=== PATIENT | female | born 1935 | race Caucasian/White ===

== ENCOUNTER 2022-07-09 23:11 | Inpatient (IN) | payer MEDICARE, OTHER ==
[~2022-07-09] VITALS: Ht 170.2 cm; Wt 68.0 kg
--- NOTE | 2022-07-09 23:36 | NUR ---
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 ALERT ORIENTED X4, COLOMBIAN SPEAKING, SON AT BEDSIDE. NO S/S OF ANY RESPIRATORY DISTRESS, LEFT BREAST MASECTOMY, ABD OBESE, SOFT AND NON TENDER TO TOUCH. #20G ESTABLISHED IN RIGHT AC, BLOOD COLLECTED AND SENT TO LAB. MD AT BEDSIDE FOR EXAM. ASSISTED INTO GOWN, PLACED ON MONITOR, WILL CONTINUE TO MONITOR.
[2022-07-09] MEDS ORDERED: MORPHINE SULFATE 2 MG/1 ML DISP.SYRIN IM ONE (23:45)
[2022-07-09] MEDS ORDERED: MORPHINE SULFATE 2 MG/1 ML DISP.SYRIN ONE (23:45)
[2022-07-09 23:48] LABS: HEMATOCRIT 39.9 % (31.2-41.9); MEAN CORPUSCULAR HEMOGLOBIN 30.3 uug (24.7-32.8); MEAN CORPUSCULAR VOLUME 94.1 fL (75.5-95.3); PLATELET COUNT (AUTO) 204 K/uL (179-408)
[2022-07-10 00:31] LABS: ALANINE AMINOTRANSFERASE 44 U/L (14-59); ALKALINE PHOSPHATASE 281 U/L (50-136); ASPARTATE AMINOTRANSFERASE 74 U/L (15-37); BILIRUBIN,DIRECT 0.3 mg/dL (0.0-0.2); BILIRUBIN,TOTAL 0.7 mg/dL (0.2-1.0); CARBON DIOXIDE 29 mmol/L (21-32); CHLORIDE 102 mmol/L (98-107); CREATININE 1.7 mg/dL (0.6-1.3); GLUCOSE 114 mg/dL (74-106); POTASSIUM 3.8 mmol/L (3.5-5.1); TOTAL PROTEIN, SERUM 7.4 g/dL (6.4-8.2); UREA NITROGEN, BLOOD 27 mg/dL (7-18)
--- NOTE | 2022-07-10 00:55 | NUR ---
Family remains at bedside, patient states pain is slightly better, remains in pain, MD made aware, no new orders.
[2022-07-10] MEDS ORDERED: metoprolol PO (01:10)
[2022-07-10] MEDS ORDERED: DILT180C66 PO (01:10)
[2022-07-10] MEDS ORDERED: AMIO200T5 PO (01:10)
--- NOTE | 2022-07-10 01:10 | NUR ---
Patient and patient's son unable to recall home medication at this time. Patient's son (Brian) will bring list of medication later on this AM.
--- NOTE | 2022-07-10 01:13 | NUR ---
Patient continues to rest no distress noted, son remains at bedside.
--- NOTE | 2022-07-10 01:15 | NUR ---
Paged Epic panel international nurse to admit patient, waiting for Julián Hackett CUSTODIAL SERVICES MANAGER to call back.
--- NOTE | 2022-07-10 01:34 | NUR ---
Dr Burgos spoke with Julián Hackett MANAGER [employer] promotion writer for [facility] who accept patient.
--- NOTE | 2022-07-10 01:35 | NUR ---
Patient aware will be admitted to the hospital, awaiting room assignment.
--- NOTE | 2022-07-10 01:47 | NUR ---
Patient noted to have BLE dry patches, pale in color and remains without any distress. Placed on o2 1liter per MD at this time.
[2022-07-10] MEDS ORDERED: REMEDY ESSENTIAL ZINC PASTE 113 GM TP PRN (03:00)
[2022-07-10] MEDS ORDERED: HYDROCODONE/APAP 5-325MG TABLET PO PRN (03:00)
[2022-07-10] MEDS ORDERED: ACETAMINOPHEN 325 MG TABLET PO PRN (03:00)
[2022-07-10] MEDS ORDERED: IV NS 1000 ML 1,000 ML IV PRN (03:00)
[2022-07-10] MEDS ORDERED: MORPHINE SULFATE 4 MG/1 ML DISP.SYRIN IV PRN (03:00)
[2022-07-10] MEDS ORDERED: ONDANSETRON 4 MG/2 ML VIAL IV PRN (03:00)
[2022-07-10] MEDS ORDERED: MAGNESIUM HYDROXIDE 30 ML LIQUID UDC PO PRN (03:00)
--- NOTE | 2022-07-10 03:52 | NUR ---
Note tammy in EDM - 07/10/22 at 0355 by JESSICA Patient sleepin, easy to arouse, family remains at bedside. Family made aaware of room #311 that patient will be going to. no change noted in prior assessment. Attempted to call reposr earlier, nurse will call me back.
--- NOTE | 2022-07-10 03:55 | NUR ---
Patient sleeping, easy to arouse, family remains at bedside. Family made aware of room #311 that patient will be going to. no change noted in prior assessment. Attempted to call report earlier, nurse will call me back.
--- NOTE | 2022-07-10 04:49 | NUR ---
Report given to accepting nurse Benita, patient remains stable for transport to unit.
--- NOTE | 2022-07-10 06:40 | NUR ---
Received a 87 yr old female admitted for a right hip fracture. AAOx4 Speaks Tristanian, very minimal Slovak, son at bedside. Was able to assessed patient with son as household refrigerator mechanic. Patient had a ground level fall at home and broke hip. Hx of lung Ca, Breast Ca with mastectomy 1992, HTN. VSS. All needs attended. #20 Rt heplock intact, NSS @ 75 cc/hr infused. Denies any pain at this time. Skin intact. Right hip has a slight bruise noted. Purewick to suction. No acute distress noted. Will monitor patient.
[2022-07-10 07:03] VITALS: BP 148/65
[2022-07-10 07:43] LABS: HEMATOCRIT 37.7 % (31.2-41.9); MEAN CORPUSCULAR HEMOGLOBIN 30.9 uug (24.7-32.8); MEAN CORPUSCULAR VOLUME 93.7 fL (75.5-95.3); PLATELET COUNT (AUTO) 183 K/uL (179-408)
[2022-07-10 07:57] LABS: CARBON DIOXIDE 29 mmol/L (21-32); CHLORIDE 103 mmol/L (98-107); CREATININE 1.4 mg/dL (0.6-1.3); GLUCOSE 106 mg/dL (74-106); MAGNESIUM 1.5 mg/dL (1.8-2.4); PHOSPHOROUS 2.4 mg/dL (2.5-4.9); POTASSIUM 3.7 mmol/L (3.5-5.1); UREA NITROGEN, BLOOD 24 mg/dL (7-18)
[2022-07-10] MEDS: PANTOPRAZOLE SODIUM 40 MG VIAL IV SCH (08:43)
[2022-07-10] MEDS: AMIODARONE HCL 200 MG TABLET PO SCH (08:44)
[2022-07-10 08:51] LABS: THYROID STIMULATING HORMONE 8.043 mIU/mL (0.358-3.740)
[2022-07-10] MEDS: MAGNESIUM SULFATE/D5W 100 ML IV SCH ×2 (10:04→11:30)
[2022-07-10 11:28] VITALS: BP 119/77
--- NOTE | 2022-07-10 14:55 | NUR ---
Pt. noted to be stable during the shift and no acute distress noted. Compliance with the care given. Call light within reach. 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 Will get the update consent for procedure for tomorrow. Pt. will be on NPO from midnight and will endorse the [facility] shift lead. Noted pt. retaining urine and reported to Dr. Jean and received order to do in and out catheter. Order followed and 400ml of urine was removed. Will keep monitoring the pt.
--- NOTE | 2022-07-10 15:40 | NUR ---
Received an order for urine collection. Order was Followed and urine collected and sent to lab.
[2022-07-10] MEDS ORDERED: SODIUM PHOSPHATE MM 15 MMOL in IV NORMAL SALINE 250 ML IV ONE (16:00)
[2022-07-10 16:08] VITALS: BP 107/53
[2022-07-10 16:09] LABS: *BILIRUBIN,URIN NEGATIVE (NEGATIVE); *BLOOD, URINE NEGATIVE (NEGATIVE); *CLARITY,URINE CLEAR (CLEAR); *COLOR,URINE YELLOW (YELLOW); *KETONES,URINE NEGATIVE (NEGATIVE); LEUKOCYTE ESTERASE ,URINE TRACE (NEGATIVE); NITRITE, URINE NEGATIVE (NEGATIVE); UGLUCOSE NEGATIVE (NEGATIVE)
[2022-07-10 16:21] LABS: *CREATININE,URINE 108.7 mg/dL (30-125); *URINE TOTAL PROTEIN RANDOM 32.6 mg/dL (<150/24HR)
[2022-07-10 16:56] LABS: BACTERIA,URINE FEW /HPF (NONE SEEN); RBC,URINE NONE SEEN /HPF (0-3); WBC,URINE 0-3 /HPF (0-3)
[2022-07-10 16:57] LABS: SQUAMOUS EPITHELIAL CELL,UR FEW /HPF (NONE SEEN)
[2022-07-10] MEDS: NEUTRA PHOS PACKET PO SCH (17:58)
[2022-07-10 20:44] VITALS: BP 113/57
--- NOTE | 2022-07-11 00:14 | NUR ---
Awake upon initial rounds. AAOx4 On continous 2L via nasal cannula. pulse ox 95%. NPO after MN. For bilateral hemiarthroplasty by Dr Chang. Consent signed. Patient been retaining urine. Bladder scan done, 300 cc noted in the bladder. Ordered for chinchilla catheter. #16 Fr chinchilla inserted under sterile technique with yellow urine noted. IVF's infusing well. Medicated with Morphine 4mg as needed. Patient been yelling and screaming and wanted to remove chinchilla out, told her she needed it because she is going to surgery in am. Patient still trying to pull catheter out and gets very agitated. Son called and was aware, even though son told she needed, still patient refused to listen. Chinchilla catheter d/c'ed.
[2022-07-11] MEDS: NEUTRA PHOS PACKET PO SCH (01:30)
[2022-07-11 04:12] VITALS: BP 104/40
[2022-07-11 07:06] LABS: HEMATOCRIT 36.3 % (31.2-41.9); MEAN CORPUSCULAR HEMOGLOBIN 31.1 uug (24.7-32.8); MEAN CORPUSCULAR VOLUME 94.1 fL (75.5-95.3); PLATELET COUNT (AUTO) 156 K/uL (179-408)
[2022-07-11 07:45] LABS: CREATININE 1.3 mg/dL (0.6-1.3); MAGNESIUM 2.1 mg/dL (1.8-2.4); PHOSPHOROUS 3.5 mg/dL (2.5-4.9); POTASSIUM 3.4 mmol/L (3.5-5.1); TOTAL PROTEIN, SERUM 5.9 g/dL (6.4-8.2)
[2022-07-11] MEDS: PANTOPRAZOLE SODIUM 40 MG VIAL IV SCH (08:03)
[2022-07-11] MEDS: AMIODARONE HCL 200 MG TABLET PO SCH (08:22)
[2022-07-11] MEDS ORDERED: VANCOMYCIN 1000 MG VIAL ONE (08:48)
[2022-07-11] MEDS ORDERED: ROCURONIUM BROMIDE 50 MG/5 ML VIAL ONE (09:10)
[2022-07-11] MEDS ORDERED: FENTANYL CITRATE 100 MCG/2 ML AMPUL ONE (09:10)
--- NOTE | 2022-07-11 09:18 | NUR ---
pt went for surgery via bed in stable condition
[2022-07-11] MEDS ORDERED: HYDROCODONE/APAP 10-325 MG TABLET PO PRN (11:30)
[2022-07-11] MEDS ORDERED: HYDROCODONE/APAP 5-325MG TABLET PO PRN (11:30)
--- NOTE | 2022-07-11 12:15 | NUR ---
pt reveived from recovery room via bed in stable condition
[2022-07-11] MEDS: IV D5W-0.45% NS +20 KCL 1,000 ML IV PRN (12:23)
[2022-07-11] MEDS ORDERED: POTASSIUM CHLORIDE 50 ML IV SCH ×2 (13:00)
[2022-07-11 13:22] VITALS: BP 100/46
[2022-07-11] MEDS ORDERED: POTASSIUM CHLORIDE 20 MEQ POWDER PACKET PO ONE (13:30)
[2022-07-11] MEDS ORDERED: NEOSTIGMINE METHYLSULFATE 10 MG/10 ML VIAL IM ONE (15:17)
[2022-07-11] MEDS ORDERED: SUCCINYLCHOLINE CHLORIDE 200 MG/10 ML VIAL IV ONE (15:17)
[2022-07-11] MEDS ORDERED: LIDOCAINE-MPF 2% 5 ML VIAL IJ ONE (15:17)
[2022-07-11] MEDS ORDERED: PROPOFOL 200 MG/20 ML BOTTLE IV ONE (15:17)
[2022-07-11] MEDS ORDERED: ONDANSETRON 4 MG/2 ML VIAL IV ONE (15:17)
[2022-07-11] MEDS ORDERED: GLYCOPYRROLATE 0.2 MG/ML VIAL IJ ONE (15:17)
[2022-07-11] MEDS ORDERED: CEFAZOLIN 1 G VIAL IM ONE (15:17)
[2022-07-11] MEDS ORDERED: DEXAMETHASONE SOD PHOSPHATE 4 MG INJ IV ONE (15:17)
[2022-07-11] MEDS ORDERED: SEVOFLURANE 250 ML BOTTLE IH ONE (15:17)
[2022-07-11 15:54] VITALS: BP 110/57
[2022-07-11] MEDS: CEFAZOLIN 1 G in IV DEXTROSE 5% 50 ML IV SCH (17:01)
[2022-07-11] MEDS: MORPHINE SULFATE 4 MG/1 ML DISP.SYRIN IV PRN (19:46)
[2022-07-11 20:21] VITALS: BP 102/56
[2022-07-12] MEDS: CEFAZOLIN 1 G in IV DEXTROSE 5% 50 ML IV SCH (01:10)
[2022-07-12] MEDS: MORPHINE SULFATE 4 MG/1 ML DISP.SYRIN IV PRN (01:16)
[2022-07-12] MEDS: IV D5W-0.45% NS +20 KCL 1,000 ML IV PRN (02:55)
[2022-07-12 04:20] VITALS: BP 106/54
[2022-07-12 07:36] LABS: HEMATOCRIT 31.3 % (31.2-41.9); MEAN CORPUSCULAR HEMOGLOBIN 31.1 uug (24.7-32.8); MEAN CORPUSCULAR VOLUME 94.3 fL (75.5-95.3); PLATELET COUNT (AUTO) 158 K/uL (179-408)
[2022-07-12 07:44] LABS: CARBON DIOXIDE 25 mmol/L (21-32); CHLORIDE 107 mmol/L (98-107); CREATININE 1.5 mg/dL (0.6-1.3); GLUCOSE 212 mg/dL (74-106); POTASSIUM 4.4 mmol/L (3.5-5.1); UREA NITROGEN, BLOOD 31 mg/dL (7-18)
[2022-07-12] MEDS: AMIODARONE HCL 200 MG TABLET PO SCH (09:12)
[2022-07-12] MEDS: PANTOPRAZOLE SODIUM 40 MG VIAL IV SCH (09:12)
[2022-07-12] MEDS ORDERED: ONDANSETRON HCL 4 MG TABLET PO SCH (09:45)
[2022-07-12] MEDS ORDERED: CELECOXIB 200 MG CAPSULE PO SCH (09:45)
[2022-07-12] MEDS ORDERED: APIXABAN 2.5 MG TABLET PO SCH (09:45)
[2022-07-12] MEDS ORDERED: FLUTICASONE PROP NASAL SPRAY 16 GM BOTTLE NS SCH (09:45)
[2022-07-12] MEDS ORDERED: ICOS1CAP PO (10:31)
[2022-07-12] MEDS ORDERED: ONDA4TAB5 PO (10:31)
[2022-07-12] MEDS ORDERED: AMYL1CAP58 PO (10:31)
[2022-07-12] MEDS ORDERED: POTA10CA43 PO (10:31)
[2022-07-12] MEDS ORDERED: ZOLP5TAB8 PO (10:31)
[2022-07-12] MEDS ORDERED: CELE200C PO (10:31)
[2022-07-12] MEDS ORDERED: DEXL60CA3 PO ×2 (10:31→17:18)
[2022-07-12] MEDS ORDERED: FLUT16SP16 BNOSTRILS (10:31)
[2022-07-12] MEDS ORDERED: DILT-32 PO (10:31)
[2022-07-12] MEDS ORDERED: COLC0.6C3 PO (10:31)
[2022-07-12] MEDS ORDERED: BUDE10.22 INH (10:31)
[2022-07-12] MEDS ORDERED: FURO40TA5 PO (10:31)
[2022-07-12] MEDS ORDERED: APIX2.5T PO (10:31)
[2022-07-12] MEDS ORDERED: ROSU10TA2 PO (10:31)
[2022-07-12 11:50] VITALS: BP 117/53
[2022-07-12] MEDS ORDERED: NEUTRA PHOS PACKET PO ONE (12:00)
[2022-07-12] MEDS ORDERED: CEPH250C PO (12:13)
--- NOTE | 2022-07-12 14:45 | NUR ---
pt is transferring to ARU, stable, A/o x 4. No pain at the moment.
[2022-07-12] MEDS ORDERED: DILT120C87 PO (17:17)
[2022-07-12] MEDS ORDERED: LINA290C PO (17:32)
[2022-07-12] MEDS ORDERED: MONT10TA22 PO (17:35)
[2022-07-12] MEDS ORDERED: DOCU-141 PO (17:36)
[2022-07-12] MEDS ORDERED: CYAN-51 PO (17:38)
[2022-07-12] MEDS ORDERED: ASCO500T20 PO (17:38)
[2022-07-12] MEDS ORDERED: FOLI1TAB94 PO (17:38)
[2022-07-12] MEDS ORDERED: FERR325T28 PO (17:40)
[2022-07-12] MEDS ORDERED: METO25TA6 PO (18:08)
[2022-07-12] MEDS ORDERED: ZOLPIDEM 5 MG TABLET PO SCH (21:00)
[2022-07-13] MEDS ORDERED: LINA290C PO (19:50)
[2022-07-13] MEDS ORDERED: COLCHICINE 0.6 MG TABLET PO SCH (20:00)
[2022-07-14] MEDS ORDERED: FUROSEMIDE 40 MG TABLET PO SCH (09:00)
== END 2022-07-12 14:47 | DRG 521 ==
LOC: ER 23:11 → TELE3 07-10 01:40 → MEDSURG3 07-10 05:30
PROVIDERS: ADMIT Nurse Practitioner Acute Care; ATTEND Nurse Practitioner Acute Care
PROC: 0SRR01A Replacement of Right Hip Joint, Femoral Surface with Metal Synthetic Substitute, Uncemented, Open Approach (ICD-10-PCS; principal; 2022-07-11)
DX: M80.051A Age-related osteoporosis with current pathological fracture, right femur, initial encounter for fracture (principal); N17.0 Acute kidney failure with tubular necrosis; N39.0 Urinary tract infection, site not specified; D68.69 Other thrombophilia; E83.42 Hypomagnesemia; E87.6 Hypokalemia; I48.0 Paroxysmal atrial fibrillation; Z79.01 Long term (current) use of anticoagulants; Z85.3 Personal history of malignant neoplasm of breast; Z85.118 Personal history of other malignant neoplasm of bronchus and lung; Z98.1 Arthrodesis status; D72.829 Elevated white blood cell count, unspecified; R74.01 Elevation of levels of liver transaminase levels; E03.2 Hypothyroidism due to medicaments and other exogenous substances; T46.2X5A Adverse effect of other antidysrhythmic drugs, initial encounter; Z74.09 Other reduced mobility; E83.9 Disorder of mineral metabolism, unspecified; I12.9 Hypertensive chronic kidney disease with stage 1 through stage 4 chronic kidney disease, or unspecified chronic kidney disease; N18.9 Chronic kidney disease, unspecified; M89.8X9 Other specified disorders of bone, unspecified site; Y93.9 Activity, unspecified; W01.0XXA Fall on same level from slipping, tripping and stumbling without subsequent striking against object, initial encounter; Y92.009 Unspecified place in unspecified non-institutional (private) residence as the place of occurrence of the external cause
CPT/HCPCS: 36415; 70450; 71045; 72125; 72192; 73501; 73502; 76770; 83735; 84100; 84156; 84300; 84443; 84484; 85025; 85730; 86850; 86900; 86901; 93005; 93307; A4649; A4663; C1758; C1776; C9113; G0378; J0330; J0690; J1100; J2270; J2405; J3010; J3370; J3475; J3490; J7040

== ENCOUNTER 2022-07-12 15:00 | Inpatient (IN) | payer MEDICARE, OTHER ==
[~2022-07-12] VITALS: Ht 170.2 cm; Wt 68.0 kg
[~2022-07-12 15:00] MED LIST: AMIO200T5 PO; AMYL1CAP58 PO; APIX2.5T PO; BUDE10.22 INH; CELE200C PO; CEPH250C PO; COLC0.6C3 PO; DEXL60CA3 PO; DILT-32 PO; DILT180C66 PO; FLUT16SP16 BNOSTRILS; FURO40TA5 PO; ICOS1CAP PO; ONDA4TAB5 PO; POTA10CA43 PO; ROSU10TA2 PO; ZOLP5TAB8 PO; metoprolol PO
[2022-07-12 16:00] VITALS: BP 113/55
[2022-07-12] MEDS ORDERED: DILT120C87 PO (17:17)
[2022-07-12] MEDS ORDERED: DEXL60CA3 PO (17:18)
[2022-07-12] MEDS ORDERED: LINA290C PO (17:32)
[2022-07-12] MEDS ORDERED: MONT10TA22 PO (17:35)
[2022-07-12] MEDS ORDERED: DOCU-141 PO (17:36)
[2022-07-12] MEDS ORDERED: CYAN-51 PO (17:38)
[2022-07-12] MEDS ORDERED: ASCO500T20 PO (17:38)
[2022-07-12] MEDS ORDERED: FOLI1TAB94 PO (17:38)
[2022-07-12] MEDS ORDERED: FERR325T28 PO (17:40)
[2022-07-12] MEDS ORDERED: METO25TA6 PO (18:08)
[2022-07-12] MEDS: REMEDY ESSENTIAL ZINC PASTE 113 GM TOP SCH ×2 (18:13→20:56)
--- NOTE | 2022-07-12 18:20 | NUR ---
Patient complained of a swollen right hand where her IV fluids are running. Her hand was assessed and it did look swollen, so Dr Tripathi made aware and told to DC IVF
[2022-07-12 20:00] VITALS: BP 119/59
--- NOTE | 2022-07-12 20:00 | NUR ---
NSG: Received patient lying in bed. son @ bedside. patient denies any pain or discomfort @ this time. assisted with adl's. call light w/in reach.
[2022-07-12] MEDS ORDERED: OXYCODONE/APAP 5-325 MG TABLET PO PRN (20:45)
[2022-07-12] MEDS: ATORVASTATIN 20 MG TABLET PO SCH (20:55)
[2022-07-13 04:00] VITALS: BP 122/61
[2022-07-13] MEDS: PANTOPRAZOLE SODIUM 40 MG TABLET.DR PO SCH (06:05)
[2022-07-13 07:44] VITALS: BP 123/60
[2022-07-13] MEDS: FUROSEMIDE 40 MG TABLET PO SCH (09:00)
[2022-07-13] MEDS: DILTIAZEM HCL CD 120 MG CAP.SR.24H PO SCH (09:00)
[2022-07-13] MEDS: FERROUS SULFATE 325 MG TABEC PO SCH (09:00)
[2022-07-13] MEDS: FLUTICASONE PROP NASAL SPRAY 16 GM BOTTLE NS SCH ×2 (09:05→17:06)
[2022-07-13] MEDS: CELECOXIB 200 MG CAPSULE PO SCH (09:07)
[2022-07-13] MEDS: AMIODARONE HCL 200 MG TABLET PO SCH (09:09)
[2022-07-13] MEDS: METOPROLOL TARTRATE 25 MG TABLET PO SCH ×2 (09:09→17:22)
[2022-07-13] MEDS: APIXABAN 2.5 MG TABLET PO SCH ×2 (09:10→17:21)
[2022-07-13] MEDS: REMEDY ESSENTIAL ZINC PASTE 113 GM TOP SCH ×2 (09:11→20:41)
[2022-07-13] MEDS: CEphaleXIN 250 MG CAPSULE PO SCH ×3 (09:12→17:21)
--- NOTE | 2022-07-13 09:30 | NUR ---
Pt's son Brian at bedside. Able to translate between me and the pt re meds, nausea, and pain. Pt off 02 as of 0900, satting 98-100% on 1 Lpm NC. Will continue to monitor. Addendum: 07/13/22 at 1115 by GREGORIA CAMERON RN SonBrian, stated he will take pt's Hearing aids home at 1000 to recharge the batteries and then bring them back.
[2022-07-13] MEDS: ONDANSETRON HCL 4 MG TABLET PO SCH ×2 (09:31→17:24)
--- NOTE | 2022-07-13 09:40 | NUR ---
Brian stated that pt only get LASIX and IRON on MWF.
--- NOTE | 2022-07-13 13:15 | NUR ---
Pt's son Brian requested menus from [employer]. [employer] notified and sent menus for pt to order what she likes to eat.
[2022-07-13] MEDS: DOCUSATE SODIUM 100 MG CAPSULE PO SCH (15:39)
[2022-07-13] MEDS: FOLIC ACID 1 MG TABLET PO SCH (15:39)
[2022-07-13] MEDS: ASCORBIC ACID 500 MG TABLET PO SCH (15:39)
[2022-07-13] MEDS: POTASSIUM CHLORIDE 8 MEQ TAB.PRT.SR PO SCH (15:39)
[2022-07-13] MEDS: CYANOCOBALAMIN 1,000 MCG TABLET PO SCH (15:39)
[2022-07-13 15:46] VITALS: BP 121/53
[2022-07-13] MEDS: MONTELUKAST SODIUM 10 MG TABLET PO SCH (17:21)
[2022-07-13] MEDS ORDERED: ZOLPIDEM 5 MG TABLET PO SCH (18:00)
--- NOTE | 2022-07-13 19:19 | NUR ---
Endorsed pt to aftab Kirkpatrick nurse. Worked this shift with Oneida [facility] RN student. Pt stable, no s/s of distress noted.
--- NOTE | 2022-07-13 19:20 | NUR ---
Received patient awake, alert, Marshallese speaking with limited Montenegrin, son at bedside to translate. Calm, cooperative with continuos O2 at 1L/min via NC saturating 98% at this time, not in distress, HOB elevated. F/C intact and patent with clear yellow urine output in moderate amount. Abduction pillow in placed in between legs. Right hip dressing dry and intact, Left lateral lower leg dressing dry and intact. Seen by ID FIRE FIGHTER CRASH FIRE AND RESCUE with new orders.VS taken WNL. Continue to monitor.
[2022-07-13] MEDS ORDERED: LINA290C PO (19:50)
[2022-07-13 20:20] VITALS: BP 135/58
[2022-07-13] MEDS: ATORVASTATIN 20 MG TABLET PO SCH (20:41)
[2022-07-13] MEDS ORDERED: MINERAL OIL FLEET ENEMA 133 ML BOTTLE RC ONE (21:45)
[2022-07-13] MEDS ORDERED: FLEET ENEMA 133 ML BOTTLE RC ONE (22:00)
[2022-07-13] MEDS: FLEET ENEMA 133 ML BOTTLE RC PRN (22:28)
--- NOTE | 2022-07-13 22:52 | NUR ---
Fleet enema given as ordered, well tolerated and effective. Good skin /tanmay care rendered.
[2022-07-14 04:27] VITALS: BP 121/60
[2022-07-14] MEDS: PANTOPRAZOLE SODIUM 40 MG TABLET.DR PO SCH (05:58)
[2022-07-14 07:25] LABS: HEMATOCRIT 29.3 % (31.2-41.9); MEAN CORPUSCULAR HEMOGLOBIN 31.3 uug (24.7-32.8); MEAN CORPUSCULAR VOLUME 93.5 fL (75.5-95.3); PLATELET COUNT (AUTO) 178 K/uL (179-408)
[2022-07-14 07:43] VITALS: BP 120/60
[2022-07-14 08:07] LABS: THYROID STIMULATING HORMONE 9.555 mIU/mL (0.358-3.740)
[2022-07-14 08:28] LABS: BILIRUBIN,TOTAL 0.6 mg/dL (0.2-1.0); CREATININE 1.3 mg/dL (0.6-1.3); MAGNESIUM 2.2 mg/dL (1.8-2.4); PHOSPHOROUS 2.8 mg/dL (2.5-4.9); POTASSIUM 4.1 mmol/L (3.5-5.1)
[2022-07-14] MEDS: FERROUS SULFATE 325 MG TABEC PO SCH ×3 (09:55→11:02)
[2022-07-14] MEDS: FUROSEMIDE 40 MG TABLET PO SCH (09:57)
[2022-07-14] MEDS: CELECOXIB 200 MG CAPSULE PO SCH (09:57)
[2022-07-14] MEDS: FLUTICASONE PROP NASAL SPRAY 16 GM BOTTLE NS SCH ×2 (09:58→17:30)
[2022-07-14] MEDS: ONDANSETRON HCL 4 MG TABLET PO SCH ×2 (09:58→17:50)
[2022-07-14] MEDS: DILTIAZEM HCL CD 120 MG CAP.SR.24H PO SCH (09:59)
[2022-07-14] MEDS: AMIODARONE HCL 200 MG TABLET PO SCH (09:59)
[2022-07-14] MEDS: METOPROLOL TARTRATE 25 MG TABLET PO SCH ×2 (10:00→17:33)
[2022-07-14] MEDS: APIXABAN 2.5 MG TABLET PO SCH ×2 (10:00→17:32)
[2022-07-14] MEDS: CEphaleXIN 250 MG CAPSULE PO SCH ×3 (10:01→17:31)
[2022-07-14] MEDS: REMEDY ESSENTIAL ZINC PASTE 113 GM TOP SCH ×2 (10:42→20:40)
[2022-07-14] MEDS: ENSURE ENLIVE (VAN) 240 ML LIQUID PO SCH ×2 (13:43→17:31)
[2022-07-14] MEDS: POTASSIUM CHLORIDE 8 MEQ TAB.PRT.SR PO SCH (14:52)
[2022-07-14] MEDS: DOCUSATE SODIUM 100 MG CAPSULE PO SCH (14:52)
[2022-07-14] MEDS: FOLIC ACID 1 MG TABLET PO SCH (14:52)
[2022-07-14] MEDS: ASCORBIC ACID 500 MG TABLET PO SCH (14:53)
[2022-07-14] MEDS: CYANOCOBALAMIN 1,000 MCG TABLET PO SCH (14:53)
--- NOTE | 2022-07-14 14:58 | NUR ---
INTERDISCIPLINARY TEAM CONFERENCE
[2022-07-14 16:00] VITALS: BP 112/47
[2022-07-14] MEDS: MONTELUKAST SODIUM 10 MG TABLET PO SCH (17:30)
--- NOTE | 2022-07-14 18:03 | NUR ---
Spoke with Dexter from Pharmacy at 1740 re: reducing Zofran order to 4mg BID from 8mg BID and starting Linzess from pt's home, both per pt request. Dexter contacted Dr. Stephens and these orders have been placed.
[2022-07-14 20:00] VITALS: BP 100/47
[2022-07-14] MEDS: ATORVASTATIN 20 MG TABLET PO SCH (20:40)
[2022-07-14] MEDS: ZOLPIDEM 5 MG TABLET PO PRN (20:41)
[2022-07-15 03:42] VITALS: BP 140/53
[2022-07-15] MEDS: PANTOPRAZOLE SODIUM 40 MG TABLET.DR PO SCH (06:09)
[2022-07-15 08:00] VITALS: BP 121/59
[2022-07-15] MEDS: CEphaleXIN 250 MG CAPSULE PO SCH ×3 (08:56→17:29)
[2022-07-15] MEDS: FLUTICASONE PROP NASAL SPRAY 16 GM BOTTLE NS SCH ×2 (08:56→17:35)
[2022-07-15] MEDS: LINZESS 290MCG CAPSULE PO SCH ×2 (08:56→09:00)
[2022-07-15] MEDS: CELECOXIB 200 MG CAPSULE PO SCH (08:56)
[2022-07-15] MEDS: FUROSEMIDE 40 MG TABLET PO SCH (08:57)
[2022-07-15] MEDS: ONDANSETRON HCL 4 MG TABLET PO SCH ×2 (08:57→17:29)
[2022-07-15] MEDS: APIXABAN 2.5 MG TABLET PO SCH ×2 (08:58→17:30)
[2022-07-15] MEDS: METOPROLOL TARTRATE 25 MG TABLET PO SCH ×2 (09:00→17:00)
[2022-07-15] MEDS: DILTIAZEM HCL CD 120 MG CAP.SR.24H PO SCH ×2 (09:00→09:40)
[2022-07-15] MEDS: ENSURE ENLIVE (VAN) 240 ML LIQUID PO SCH ×3 (09:11→17:28)
[2022-07-15] MEDS: REMEDY ESSENTIAL ZINC PASTE 113 GM TOP SCH ×2 (09:12→20:18)
[2022-07-15] MEDS: AMIODARONE HCL 200 MG TABLET PO SCH (09:41)
[2022-07-15] MEDS: DOCUSATE SODIUM 100 MG CAPSULE PO SCH (14:06)
[2022-07-15] MEDS: POTASSIUM CHLORIDE 8 MEQ TAB.PRT.SR PO SCH (14:06)
[2022-07-15] MEDS: ASCORBIC ACID 500 MG TABLET PO SCH (14:06)
[2022-07-15] MEDS: CYANOCOBALAMIN 1,000 MCG TABLET PO SCH (14:06)
[2022-07-15] MEDS: FOLIC ACID 1 MG TABLET PO SCH (14:06)
[2022-07-15 16:00] VITALS: BP 112/59
[2022-07-15] MEDS: MONTELUKAST SODIUM 10 MG TABLET PO SCH (17:29)
[2022-07-15 20:00] VITALS: BP 112/54
[2022-07-15] MEDS: ATORVASTATIN 20 MG TABLET PO SCH (20:18)
[2022-07-15] MEDS: ZOLPIDEM 5 MG TABLET PO PRN (20:47)
[2022-07-16 04:26] VITALS: BP 111/58
[2022-07-16] MEDS: PANTOPRAZOLE SODIUM 40 MG TABLET.DR PO SCH (06:03)
--- NOTE | 2022-07-16 06:22 | NUR ---
AAOx4 All needs attended and met. VSS. Kept comfortable. Ghosh catheter intact draining well. No BM noted this shift. Fall precautions maintained. Siderails up for safety. Call sam within reach. Denies any pain nor any discomfort. LLE dressing clean dry and intact. Abduction pillow in between legs.
[2022-07-16 07:47] VITALS: BP 106/52
[2022-07-16] MEDS ORDERED: LINZESS 290MCG CAPSULE PO SCH (08:00)
[2022-07-16] MEDS: CELECOXIB 200 MG CAPSULE PO SCH (08:58)
[2022-07-16] MEDS: METOPROLOL TARTRATE 25 MG TABLET PO SCH ×2 (08:58→20:43)
[2022-07-16] MEDS: FERROUS SULFATE 325 MG TABEC PO SCH (08:59)
[2022-07-16] MEDS: APIXABAN 2.5 MG TABLET PO SCH ×2 (08:59→17:01)
[2022-07-16] MEDS: AMIODARONE HCL 200 MG TABLET PO SCH (09:00)
[2022-07-16] MEDS: FLUTICASONE PROP NASAL SPRAY 16 GM BOTTLE NS SCH ×2 (09:00→17:00)
[2022-07-16] MEDS: DILTIAZEM HCL CD 120 MG CAP.SR.24H PO SCH (09:01)
[2022-07-16] MEDS: CEphaleXIN 250 MG CAPSULE PO SCH (09:02)
[2022-07-16] MEDS: ENSURE ENLIVE (VAN) 240 ML LIQUID PO SCH ×3 (09:02→17:01)
[2022-07-16] MEDS: REMEDY ESSENTIAL ZINC PASTE 113 GM TOP SCH ×2 (09:04→20:44)
[2022-07-16] MEDS: FUROSEMIDE 20 MG TABLET PO SCH (09:04)
[2022-07-16 11:14] VITALS: BP 106/52
--- NOTE | 2022-07-16 15:00 | NUR ---
INDIVIDUALIZED PLAN OF CARE
[2022-07-16] MEDS: ASCORBIC ACID 500 MG TABLET PO SCH (15:08)
[2022-07-16] MEDS: CYANOCOBALAMIN 1,000 MCG TABLET PO SCH (15:08)
[2022-07-16] MEDS: DOCUSATE SODIUM 100 MG CAPSULE PO SCH (15:08)
[2022-07-16 15:17] VITALS: BP 107/58
[2022-07-16 20:45] VITALS: BP 117/53
--- NOTE | 2022-07-16 23:00 | NUR ---
1900- The patient is aox4. Vital signs stable. The patient has no IV access. The patient has a chinchilla catheter that is clean, dry, and intact, and below the bladder. The patient has an abduction pillow in between legs. Call light within reach, two side rails up, bed at lowest position, and bed alarm on, wheels lock. The patient has no complains of pain or sob. Will continue to monitor throughout the shift. 2200- The patient is resting comfortably. The patient request for an extra blanket. Item is given to the patient. The patient has no complains of pain. Will continue to monitor throughout the shift. 0100- The patient is asleep and has no complains of pain. Will continue to monitor throughout the shift.
[2022-07-17 04:09] VITALS: BP 120/72
[2022-07-17] MEDS: LEVOTHYROXINE SODIUM 25 MCG TABLET PO SCH (06:25)
[2022-07-17] MEDS: PANTOPRAZOLE SODIUM 40 MG TABLET.DR PO SCH (06:25)
[2022-07-17] MEDS: LINZESS 290MCG CAPSULE PO SCH (06:39)
[2022-07-17 07:50] VITALS: BP 112/54
[2022-07-17] MEDS: OXYCODONE HCL 5 MG TABLET PO SCH ×3 (08:39→13:00)
[2022-07-17] MEDS: DILTIAZEM HCL CD 120 MG CAP.SR.24H PO SCH ×2 (08:40→09:00)
[2022-07-17] MEDS: METOPROLOL TARTRATE 25 MG TABLET PO SCH ×3 (08:40→20:41)
[2022-07-17] MEDS: FERROUS SULFATE 325 MG TABEC PO SCH ×2 (08:41→09:00)
[2022-07-17] MEDS: CELECOXIB 200 MG CAPSULE PO SCH (08:41)
[2022-07-17] MEDS: APIXABAN 2.5 MG TABLET PO SCH ×2 (08:41→16:06)
[2022-07-17] MEDS: AMIODARONE HCL 200 MG TABLET PO SCH (08:42)
[2022-07-17] MEDS: FLUTICASONE PROP NASAL SPRAY 16 GM BOTTLE NS SCH ×2 (08:42→16:07)
[2022-07-17] MEDS: FUROSEMIDE 20 MG TABLET PO SCH ×2 (08:42→09:00)
[2022-07-17] MEDS: ENSURE ENLIVE (VAN) 240 ML LIQUID PO SCH ×3 (08:43→16:07)
[2022-07-17] MEDS: REMEDY ESSENTIAL ZINC PASTE 113 GM TOP SCH ×2 (08:43→20:41)
--- NOTE | 2022-07-17 09:23 | NUR ---
oxy 9am not administered, duplicate order
[2022-07-17] MEDS ORDERED: OXYCODONE HCL 5 MG TABLET PO SCH (09:24)
[2022-07-17] MEDS: DOCUSATE SODIUM 100 MG CAPSULE PO SCH (14:09)
[2022-07-17] MEDS: CYANOCOBALAMIN 1,000 MCG TABLET PO SCH (14:10)
[2022-07-17] MEDS: FLEET ENEMA 133 ML BOTTLE RC PRN (14:10)
[2022-07-17] MEDS: ASCORBIC ACID 500 MG TABLET PO SCH (14:10)
[2022-07-17 16:40] VITALS: BP 121/55
--- NOTE | 2022-07-17 19:21 | NUR ---
no distress noted, reprot given to next shift, patient incision site is clean with scant drainage, however no malodorous noted.
[2022-07-17 20:00] VITALS: BP 111/56
--- NOTE | 2022-07-17 23:00 | NUR ---
1900-The patient is aox4. Vital signs stable. The patient has no IV access. The patient has a chinchilla catheter that is clean, dry, and intact, and below the bladder. The patient has an abduction pillow in between legs. Call light within reach, two side rails up, bed at lowest position, and bed alarm on, wheels lock. The patient has no complains of pain or sob. Will continue to monitor throughout the shift. 1930- Changed surgical dressings. Dressing is clean, dry, and intact. The patient has no sob. Will continue to monitor throughout the shift. 2200- The patient is resting comfortably. The patient request for an extra water. Item is given to the patient. The patient has no complains of pain. Will continue to monitor throughout the shift. 0100- The patient is asleep and has no complains of pain or sob. Will continue to monitor throughout the shift.
[2022-07-18 04:00] VITALS: BP 109/58
[2022-07-18] MEDS: LINZESS 290MCG CAPSULE PO SCH (06:54)
[2022-07-18] MEDS: LEVOTHYROXINE SODIUM 25 MCG TABLET PO SCH (06:54)
[2022-07-18] MEDS: PANTOPRAZOLE SODIUM 40 MG TABLET.DR PO SCH (06:54)
[2022-07-18 07:36] VITALS: BP 103/49
[2022-07-18 08:11] LABS: HEMATOCRIT 26.5 % (31.2-41.9); MEAN CORPUSCULAR HEMOGLOBIN 30.6 uug (24.7-32.8); MEAN CORPUSCULAR VOLUME 94.5 fL (75.5-95.3); PLATELET COUNT (AUTO) 228 K/uL (179-408)
[2022-07-18] MEDS: CELECOXIB 200 MG CAPSULE PO SCH (08:17)
[2022-07-18] MEDS: AMIODARONE HCL 200 MG TABLET PO SCH (08:18)
[2022-07-18] MEDS: OXYCODONE HCL 5 MG TABLET PO SCH ×2 (08:18→13:24)
[2022-07-18] MEDS: ENSURE ENLIVE (VAN) 240 ML LIQUID PO SCH ×3 (08:19→16:33)
[2022-07-18] MEDS: FLUTICASONE PROP NASAL SPRAY 16 GM BOTTLE NS SCH ×2 (08:19→16:33)
[2022-07-18] MEDS: FUROSEMIDE 20 MG TABLET PO SCH (08:19)
[2022-07-18] MEDS: METOPROLOL TARTRATE 25 MG TABLET PO SCH ×2 (08:20→21:00)
[2022-07-18] MEDS: REMEDY ESSENTIAL ZINC PASTE 113 GM TOP SCH ×2 (08:20→21:00)
[2022-07-18] MEDS: DILTIAZEM HCL CD 120 MG CAP.SR.24H PO SCH (08:21)
[2022-07-18] MEDS: APIXABAN 2.5 MG TABLET PO SCH ×2 (08:21→16:33)
[2022-07-18 08:24] LABS: BILIRUBIN,TOTAL 0.8 mg/dL (0.2-1.0); CREATININE 1.2 mg/dL (0.6-1.3); MAGNESIUM 1.5 mg/dL (1.8-2.4); PHOSPHOROUS 4.9 mg/dL (2.5-4.9); POTASSIUM 4.5 mmol/L (3.5-5.1); TOTAL PROTEIN, SERUM 5.5 g/dL (6.4-8.2)
[2022-07-18] MEDS ORDERED: MAGNESIUM OXIDE 400 MG TABLET PO ONE ×2 (10:30→14:00)
[2022-07-18] MEDS: DOCUSATE SODIUM 100 MG CAPSULE PO SCH (14:21)
[2022-07-18] MEDS: ASCORBIC ACID 500 MG TABLET PO SCH (14:21)
[2022-07-18] MEDS: CYANOCOBALAMIN 1,000 MCG TABLET PO SCH (14:21)
[2022-07-18 16:00] VITALS: BP 119/62
--- NOTE | 2022-07-18 17:00 | NUR ---
dhiraj are intact to right hip incision, incision is well approximated, noted with some redness to incision site with scant serous drainage, no malodorous noted. dressing intact, wound care ordered to follow up on incision site for eval. no acute changes noted, no distress noted.
[2022-07-18 20:00] VITALS: BP 111/54
[2022-07-19 04:00] VITALS: BP 116/62
[2022-07-19] MEDS: LEVOTHYROXINE SODIUM 25 MCG TABLET PO SCH (06:13)
[2022-07-19] MEDS: LINZESS 290MCG CAPSULE PO SCH (06:13)
[2022-07-19] MEDS: PANTOPRAZOLE SODIUM 40 MG TABLET.DR PO SCH (06:13)
--- NOTE | 2022-07-19 07:49 | NUR ---
SHIFT NOTE: PT RECEIVED SLEEPING IN BED NO SIGNS OF DISTRESS NOTED. PT GIVEN MEDICATION ORDERED NO SIGNS OF ADVERSE REACTION NOTED.. PT REFUSED HS MEDICATION BUT TOOK AM MEDICATION NO SIGNS OF ADVERSE REACTION. PT SLEPT THROUGHOUT THE NIGHT WILL CONTINUE TO MONITOR FOR SAFETY.
[2022-07-19 07:51] VITALS: BP 127/53
[2022-07-19] MEDS ORDERED: FERROUS SULFATE 325 MG TABEC PO SCH (09:00)
[2022-07-19] MEDS: DILTIAZEM HCL CD 120 MG CAP.SR.24H PO SCH (09:00)
[2022-07-19] MEDS: METOPROLOL TARTRATE 25 MG TABLET PO SCH ×2 (09:00→20:47)
[2022-07-19] MEDS: FUROSEMIDE 20 MG TABLET PO SCH (09:23)
[2022-07-19] MEDS: CELECOXIB 200 MG CAPSULE PO SCH (09:23)
[2022-07-19] MEDS: FLUTICASONE PROP NASAL SPRAY 16 GM BOTTLE NS SCH ×2 (09:23→17:39)
[2022-07-19] MEDS: APIXABAN 2.5 MG TABLET PO SCH ×2 (09:24→17:40)
[2022-07-19] MEDS: AMIODARONE HCL 200 MG TABLET PO SCH (09:26)
[2022-07-19] MEDS: OXYCODONE HCL 5 MG TABLET PO SCH ×2 (09:27→14:08)
[2022-07-19] MEDS: ENSURE ENLIVE (VAN) 240 ML LIQUID PO SCH ×3 (09:28→17:40)
[2022-07-19] MEDS: REMEDY ESSENTIAL ZINC PASTE 113 GM TOP SCH ×2 (09:28→20:47)
--- NOTE | 2022-07-19 13:16 | NUR ---
WOUND CARE CONSULT: PT PRESENTS WITH RT HIP/BUTTOCK SKIN TEAR PROXIMAL TO INCISION (WHICH IS CLEAR WITH DENNIS). PT ALSO NOTED TO HAVE DISCOLORATION WITH RAISED DRY LESION TO RT LOWER LEG AND SKIN TEAR WITH DISCOLORATION TO LEFT LOWER LEG. DR FLOYD CALLED FOR DPM CONSULT. DISCUSSEDE SKIN PROTECTION WITH NURSING STAFF. XEROFORM DRESSINGS WERE APPLIED TO RT HIP/BUTTOCK AND LEFT LOWER LEG SKIN TEARS. MD IN AGREEMENT WITH PLAN OF CARE. Addendum: 07/19/22 at 1318 by MIAH GOMEZ RN Amended: Links added.
[2022-07-19] MEDS: DOCUSATE SODIUM 100 MG CAPSULE PO SCH (14:09)
[2022-07-19] MEDS: CYANOCOBALAMIN 1,000 MCG TABLET PO SCH (14:09)
[2022-07-19] MEDS: ASCORBIC ACID 500 MG TABLET PO SCH (14:10)
[2022-07-19 16:00] VITALS: BP 117/53
[2022-07-19 16:35] LABS: *BILIRUBIN,URIN NEGATIVE (NEGATIVE); *CLARITY,URINE CLEAR (CLEAR); *COLOR,URINE YELLOW (YELLOW); *KETONES,URINE NEGATIVE (NEGATIVE); *UROBILINOGEN,URINE 0.2 E.U./dl (NORMAL); LEUKOCYTE ESTERASE ,URINE TRACE (NEGATIVE); NITRITE, URINE NEGATIVE (NEGATIVE); UGLUCOSE NEGATIVE (NEGATIVE)
[2022-07-19 16:40] LABS: *BLOOD, URINE TRACE (NEGATIVE)
[2022-07-19 18:25] LABS: BACTERIA,URINE MANY /HPF (NONE SEEN); MUCUS,URINE FEW /LPF (0-FEW); SQUAMOUS EPITHELIAL CELL,UR FEW /HPF (NONE SEEN)
--- NOTE | 2022-07-19 18:50 | NUR ---
RECEIVED REPORT FROM ADELINA HALL RN. PATIENT IS ALERT & ORIENTED X4. VITAL SIGNS STABLE. PATIENT TOLERATES PO MEDICATIONS AND DIET. PATIENT DELAROSA CATHETER PATENT AND DRAINING. PER SON'S REQUEST, HE WANTED TO WAIT A BIT UNTIL URINE LABS COMPLETE PRIOR TO REMOVING DELAROSA CATHETER. URINE SPECIMENS COLLECTED REQUESTED. RN ENDORSED TO FUNCTIONAL SUPPORT ANALYST REGARDING FAMILY MEMBER'S REQUEST FOR REMOVAL. PATIENT PARTICIPATES WITH PHYSICAL AND OCCUPATIONAL THERAPY SCHEDULED. PATIENT COMPLAINED OF PAIN. PAIN MANAGED WITH MEDICATIONS ORDERED. DAY CARE HOME PROVIDERMIAH, SEEN PATIENT. DRESSING CHANGED DONE ORDERED. NO ACUTE DISTRESS NOTED. FALL PRECAUTIONS IN PLACE. ALL NEEDS MET AT THIS TIME. ENDORSED CARE TO ADELINA BOSTON RN, FOR CONTINUATION OF CARE.
[2022-07-19 20:00] VITALS: BP 117/45
[2022-07-19] MEDS: FERROUS SULFATE 325 MG TABEC PO SCH (20:46)
[2022-07-20 04:00] VITALS: BP 117/56
[2022-07-20] MEDS: LINZESS 290MCG CAPSULE PO SCH (06:42)
[2022-07-20] MEDS: PANTOPRAZOLE SODIUM 40 MG TABLET.DR PO SCH (06:42)
[2022-07-20] MEDS: LEVOTHYROXINE SODIUM 25 MCG TABLET PO SCH (06:42)
[2022-07-20 06:50] LABS: HEMATOCRIT 28.4 % (31.2-41.9); MEAN CORPUSCULAR HEMOGLOBIN 31.5 uug (24.7-32.8); MEAN CORPUSCULAR VOLUME 95.1 fL (75.5-95.3); PLATELET COUNT (AUTO) 244 K/uL (179-408)
[2022-07-20 07:24] VITALS: BP 101/47
[2022-07-20] MEDS: FUROSEMIDE 20 MG TABLET PO SCH (09:00)
[2022-07-20] MEDS: DILTIAZEM HCL CD 120 MG CAP.SR.24H PO SCH (09:00)
[2022-07-20] MEDS: METOPROLOL TARTRATE 25 MG TABLET PO SCH ×2 (09:00→20:52)
[2022-07-20] MEDS: CELECOXIB 200 MG CAPSULE PO SCH (09:31)
[2022-07-20] MEDS: OXYCODONE HCL 5 MG TABLET PO SCH ×2 (09:31→13:00)
[2022-07-20] MEDS: AMIODARONE HCL 200 MG TABLET PO SCH (09:31)
[2022-07-20] MEDS: FLUTICASONE PROP NASAL SPRAY 16 GM BOTTLE NS SCH ×2 (09:31→17:16)
[2022-07-20] MEDS: APIXABAN 2.5 MG TABLET PO SCH ×2 (09:34→17:16)
[2022-07-20] MEDS: ENSURE ENLIVE (VAN) 240 ML LIQUID PO SCH ×3 (09:35→17:17)
[2022-07-20] MEDS: REMEDY ESSENTIAL ZINC PASTE 113 GM TOP SCH ×2 (09:44→20:45)
[2022-07-20] MEDS: ONDANSETRON HCL 4 MG TABLET PO PRN (14:20)
[2022-07-20] MEDS: ASCORBIC ACID 500 MG TABLET PO SCH (15:42)
[2022-07-20] MEDS: CYANOCOBALAMIN 1,000 MCG TABLET PO SCH (15:42)
[2022-07-20] MEDS: DOCUSATE SODIUM 100 MG CAPSULE PO SCH (15:42)
[2022-07-20 15:43] VITALS: BP 120/52
--- NOTE | 2022-07-20 18:05 | NUR ---
Spoke to Dr. Duron re: pt's UTI and asked if pt should be on ABX. Dr. Duron said, "I will take a look." Will endorse.
--- NOTE | 2022-07-20 18:28 | NUR ---
Pt's son Brian was at bedside frequently throughout the day to aid in pt care. All pt needs met today. Pt stable, no s/s of distress or SOB noted at this time. Ghosh catheter d/c'd at 1430, pt has not voided yet. Wound care done per orders. Oneida, student nurse from [employer] assisted in pt care today.
[2022-07-20 20:00] VITALS: BP 112/56
--- NOTE | 2022-07-20 23:00 | NUR ---
1910- The patient is aox4. Vital signs stable. The patient has no IV access. Call light within reach, two side rails up, bed at lowest position, and bed alarm on, wheels lock. The patient has no complains of pain or sob. Will continue to monitor throughout the shift. 2300- The patient is resting comfortably. The patient request for an extra pillow. Item is given to the patient. The patient has no complains of pain. Will continue to monitor throughout the shift. 0200- The patient is asleep and has no complains of pain. Will continue to monitor throughout the shift.
[2022-07-21 04:00] VITALS: BP 112/53
[2022-07-21] MEDS: PANTOPRAZOLE SODIUM 40 MG TABLET.DR PO SCH (06:28)
[2022-07-21] MEDS: LEVOTHYROXINE SODIUM 25 MCG TABLET PO SCH (06:29)
[2022-07-21] MEDS: LINZESS 290MCG CAPSULE PO SCH (06:30)
[2022-07-21 07:58] VITALS: BP 115/60
[2022-07-21] MEDS: OXYCODONE HCL 5 MG TABLET PO SCH ×3 (09:08→13:52)
[2022-07-21] MEDS: APIXABAN 2.5 MG TABLET PO SCH ×2 (09:08→16:39)
[2022-07-21] MEDS: FUROSEMIDE 20 MG TABLET PO SCH (09:09)
[2022-07-21] MEDS: AMIODARONE HCL 200 MG TABLET PO SCH (09:09)
[2022-07-21] MEDS: CELECOXIB 200 MG CAPSULE PO SCH (09:09)
[2022-07-21] MEDS: METOPROLOL TARTRATE 25 MG TABLET PO SCH ×2 (09:09→21:00)
[2022-07-21] MEDS: ARGININE/GLUTAMINE/CALCIUM BMB 1 EACH POWD.PACK PO SCH ×2 (09:13→17:46)
[2022-07-21] MEDS: ENSURE ENLIVE (VAN) 240 ML LIQUID PO SCH ×3 (09:13→17:46)
[2022-07-21] MEDS: FLUTICASONE PROP NASAL SPRAY 16 GM BOTTLE NS SCH ×2 (09:14→16:38)
[2022-07-21] MEDS: REMEDY ESSENTIAL ZINC PASTE 113 GM TOP SCH ×2 (09:15→23:06)
[2022-07-21] MEDS: DILTIAZEM HCL CD 120 MG CAP.SR.24H PO SCH (09:39)
--- NOTE | 2022-07-21 11:16 | NUR ---
0730-REC'D PATIENT IN BED, AWAKE, A/OX4, ABLE TO MAKE SIMPLE NEEDS KNOWN, ON R/A, NO SS OF RESP. DISTRESS, PATIENT DENIES PAIN, ORAL FLUIDS ENCOURAGED AND TAKEN WELL. ENCOURAGED TO USE CALL LIGHT FOR HELP WITH GOOD UNDERSTANDING. 0900-SCHEDULED MEDICATIONS ADMINISTERED, NO ASE NOTED; PATIENT'S SON IS VISITING HER, MEDICATIONS GIVEN TO PATIENT WERE EXPLAINED TO THE SON PER HIS REQUEST/PATIENT AGREES WITH IT. 1000-PATIENT OOB AND TO HER THERAPY SCHEDULED.
--- NOTE | 2022-07-21 12:21 | NUR ---
WOUND CARE: CLARIFIED WOUND CARE RECOMMENDATIONS WITH NURSING STAFF. MD IN AGREEMENT WITH PLAN OF CARE.
--- NOTE | 2022-07-21 13:09 | NUR ---
INTERDISCIPLINARY TEAM CONFERENCE
[2022-07-21] MEDS: CYANOCOBALAMIN 1,000 MCG TABLET PO SCH (15:13)
[2022-07-21] MEDS: DOCUSATE SODIUM 100 MG CAPSULE PO SCH (15:13)
[2022-07-21] MEDS: ASCORBIC ACID 500 MG TABLET PO SCH (15:13)
[2022-07-21 16:26] VITALS: BP 105/50
--- NOTE | 2022-07-21 18:51 | NUR ---
PATIENT ALERT AND ORIENTED, ABLE TO COMMUNICATE SIMPLE NEEDS AND FOLLOW DIRECTIONS. MEDICATED DURING SHIFT/SCHEDULED ORDERED BY MD. PATIENT WITH NO C/O PAIN, ABLE TO PARTICIPATE IN THERAPY/ADLS WITH NO INTERRUPTIONS CAUSED BY PAIN. ASSISTED TO THE BEDSIDE COMMODE NEEDED, VOIDED WELL. CARE PROVIDED AT ROUTINE INTERVALS AND NEEDED. PATIENT EATING AND DRINKING WELL. NO C/O GI DISCOMFORT, NO N/V NOTED. PATIENT WAS VISITED BY HER SON DURING SHIFT AT DIFFERENT TIMES DURING SHIFT. ASSISTED WITH ADLS AND NEEDED. PER Dr. HURD "OK" WBAT TO RT EXT.
[2022-07-21 20:00] VITALS: BP 105/51
--- NOTE | 2022-07-21 23:00 | NUR ---
1915- The patient is aox4. Vital signs stable. The patient has no IV access. Call light within reach, two side rails up, bed at lowest position, and bed alarm on, wheels lock. The patient has no complains of pain or sob. Will continue to monitor throughout the shift. 2300- The patient is resting comfortably. The patient request for an extra blanket. Item is given to the patient. The patient has no complains of pain. Will continue to monitor throughout the shift. 0100- The patient is asleep and has no complains of pain. Will continue to monitor throughout the shift. 0630- Checked Dressings, they are clean, dry, and intact. NO need to change the dressings. Will continue to monitor throughout the shift.
[2022-07-21] MEDS: FERROUS SULFATE 325 MG TABEC PO SCH (23:07)
[2022-07-22 05:24] VITALS: BP 118/57
[2022-07-22] MEDS: PANTOPRAZOLE SODIUM 40 MG TABLET.DR PO SCH (06:16)
[2022-07-22] MEDS: LEVOTHYROXINE SODIUM 25 MCG TABLET PO SCH (06:17)
[2022-07-22] MEDS: LINZESS 290MCG CAPSULE PO SCH (06:43)
[2022-07-22 07:42] VITALS: BP 122/56
[2022-07-22] MEDS: CELECOXIB 200 MG CAPSULE PO SCH (08:25)
[2022-07-22] MEDS: FUROSEMIDE 20 MG TABLET PO SCH (08:25)
[2022-07-22] MEDS: OXYCODONE HCL 5 MG TABLET PO SCH (08:25)
[2022-07-22] MEDS: AMIODARONE HCL 200 MG TABLET PO SCH (08:27)
[2022-07-22] MEDS: DILTIAZEM HCL CD 120 MG CAP.SR.24H PO SCH (08:28)
[2022-07-22] MEDS: METOPROLOL TARTRATE 25 MG TABLET PO SCH ×2 (08:28→21:00)
[2022-07-22] MEDS: APIXABAN 2.5 MG TABLET PO SCH ×2 (08:29→16:28)
[2022-07-22] MEDS: ENSURE ENLIVE (VAN) 240 ML LIQUID PO SCH ×3 (08:30→17:10)
[2022-07-22] MEDS: ARGININE/GLUTAMINE/CALCIUM BMB 1 EACH POWD.PACK PO SCH ×2 (08:31→17:11)
[2022-07-22] MEDS: REMEDY ESSENTIAL ZINC PASTE 113 GM TOP SCH ×2 (08:33→21:42)
[2022-07-22] MEDS: FLUTICASONE PROP NASAL SPRAY 16 GM BOTTLE NS SCH ×2 (08:33→16:27)
[2022-07-22] MEDS ORDERED: CEFTRIAXONE 1 G in IV DEXTROSE 5% 50 ML IV ONE (15:00)
[2022-07-22] MEDS: DOCUSATE SODIUM 100 MG CAPSULE PO SCH (15:23)
[2022-07-22] MEDS: ASCORBIC ACID 500 MG TABLET PO SCH (15:23)
[2022-07-22] MEDS: CYANOCOBALAMIN 1,000 MCG TABLET PO SCH (15:23)
[2022-07-22 16:23] VITALS: BP 108/53
--- NOTE | 2022-07-22 18:15 | NUR ---
Patient alert and oriented, able to communicate simple needs and follow simple directions. In bed during shift but out of bed to her therapy, patient able to actively participate in therapy with no c/o pain or discomfort. Assisted with ADLs as needed during shift. Assisted to bed side commode and voided well, continent and with episodes of incontinence as well. Care provided at routine intervals and as needed. RT hip surgical site and left fried skin tear treatments done as ordered. IV 22" G placed to rt FA, procedure explained prior to insertion, patient tolerated well, x1 dose of IV atb therapy proph UTI administered as ordered, no ASE noted. Patient with no C/O bladder discomfort, no hematuria noted. Good care rendered. All needs anticipated and met.
[2022-07-22 20:00] VITALS: BP 112/54
--- NOTE | 2022-07-22 23:00 | NUR ---
1915- The patient is aox4. Vital signs stable. Call light within reach, two side rails up, bed at lowest position, and bed alarm on, wheels lock. The patient has no complains of pain or sob. Will continue to monitor throughout the shift. 2300- The patient is resting comfortably. The patient request for an extra water. Item is given to the patient. The patient has no complains of pain. Will continue to monitor throughout the shift. 0100- The patient is asleep and has no complains of pain. Will continue to monitor throughout the shift. 0630- Checked Dressings, they are clean, dry, and intact. NO need to change the dressings. Will continue to monitor throughout the shift.
[2022-07-23 04:00] VITALS: BP 113/56
[2022-07-23] MEDS: LINZESS 290MCG CAPSULE PO SCH (06:38)
[2022-07-23] MEDS: PANTOPRAZOLE SODIUM 40 MG TABLET.DR PO SCH (06:39)
[2022-07-23] MEDS: LEVOTHYROXINE SODIUM 25 MCG TABLET PO SCH (06:39)
[2022-07-23 07:57] VITALS: BP 123/59
[2022-07-23] MEDS: OXYCODONE HCL 5 MG TABLET PO SCH ×2 (08:47→13:07)
[2022-07-23] MEDS: CELECOXIB 200 MG CAPSULE PO SCH (08:48)
[2022-07-23] MEDS: FUROSEMIDE 20 MG TABLET PO SCH (08:48)
[2022-07-23] MEDS: AMIODARONE HCL 200 MG TABLET PO SCH (08:48)
[2022-07-23] MEDS: APIXABAN 2.5 MG TABLET PO SCH ×2 (08:50→17:37)
[2022-07-23] MEDS: METOPROLOL TARTRATE 25 MG TABLET PO SCH ×2 (08:51→21:00)
[2022-07-23] MEDS: DILTIAZEM HCL CD 120 MG CAP.SR.24H PO SCH (08:52)
[2022-07-23] MEDS: FLUTICASONE PROP NASAL SPRAY 16 GM BOTTLE NS SCH ×2 (08:52→17:36)
[2022-07-23] MEDS: REMEDY ESSENTIAL ZINC PASTE 113 GM TOP SCH ×2 (08:55→21:00)
[2022-07-23] MEDS: ENSURE ENLIVE (VAN) 240 ML LIQUID PO SCH ×3 (08:57→17:37)
[2022-07-23] MEDS: ARGININE/GLUTAMINE/CALCIUM BMB 1 EACH POWD.PACK PO SCH ×2 (08:58→17:37)
[2022-07-23] MEDS: FLEET ENEMA 133 ML BOTTLE RC PRN (11:22)
[2022-07-23] MEDS: DOCUSATE SODIUM 100 MG CAPSULE PO SCH (14:43)
[2022-07-23] MEDS: ASCORBIC ACID 500 MG TABLET PO SCH (14:43)
[2022-07-23] MEDS: CYANOCOBALAMIN 1,000 MCG TABLET PO SCH (14:43)
[2022-07-23 16:36] VITALS: BP 106/51
[2022-07-23 20:15] VITALS: BP 100/50
[2022-07-23] MEDS: FERROUS SULFATE 325 MG TABEC PO SCH (21:00)
--- NOTE | 2022-07-24 04:08 | NUR ---
Resting in bed @ beginning of shift. VSS. All needs attended. Will monitor patient. OOB to bedside commode with supervision. Voiding well. No complaints presented so far. Right hip dressing intact. Fall precautions maintained. Siderails up for safety. Will monitor patient. Kept comfortable.
[2022-07-24 04:57] VITALS: BP 110/54
[2022-07-24] MEDS: PANTOPRAZOLE SODIUM 40 MG TABLET.DR PO SCH (06:04)
[2022-07-24] MEDS: LEVOTHYROXINE SODIUM 25 MCG TABLET PO SCH (06:04)
[2022-07-24] MEDS: LINZESS 290MCG CAPSULE PO SCH (06:30)
[2022-07-24 07:49] VITALS: BP 115/55
[2022-07-24] MEDS: CELECOXIB 200 MG CAPSULE PO SCH (08:20)
[2022-07-24] MEDS: OXYCODONE HCL 5 MG TABLET PO SCH ×2 (08:22→13:50)
[2022-07-24] MEDS: AMIODARONE HCL 200 MG TABLET PO SCH (08:23)
[2022-07-24] MEDS: APIXABAN 2.5 MG TABLET PO SCH ×2 (08:24→17:04)
[2022-07-24] MEDS: ARGININE/GLUTAMINE/CALCIUM BMB 1 EACH POWD.PACK PO SCH ×2 (08:25→17:03)
[2022-07-24] MEDS: FLUTICASONE PROP NASAL SPRAY 16 GM BOTTLE NS SCH ×2 (08:25→17:04)
[2022-07-24] MEDS: ENSURE ENLIVE (VAN) 240 ML LIQUID PO SCH ×3 (08:25→17:03)
[2022-07-24] MEDS: METOPROLOL TARTRATE 25 MG TABLET PO SCH ×3 (08:25→21:00)
[2022-07-24] MEDS: REMEDY ESSENTIAL ZINC PASTE 113 GM TOP SCH ×2 (08:26→20:57)
[2022-07-24] MEDS: FUROSEMIDE 20 MG TABLET PO SCH (08:27)
[2022-07-24] MEDS: DILTIAZEM HCL CD 120 MG CAP.SR.24H PO SCH (08:48)
[2022-07-24] MEDS: DOCUSATE SODIUM 100 MG CAPSULE PO SCH (16:07)
[2022-07-24] MEDS: ASCORBIC ACID 500 MG TABLET PO SCH (16:07)
[2022-07-24] MEDS: CYANOCOBALAMIN 1,000 MCG TABLET PO SCH (16:07)
[2022-07-24 16:31] VITALS: BP 116/57
[2022-07-24 20:30] VITALS: BP 104/52
--- NOTE | 2022-07-25 04:24 | NUR ---
AAOx4 All needs attended. VSS No acute distress noted. Will monitor patient. Tolerated po meds well. OOB to bedside commode. Voiding well. No BM noted this shift. Kept comfortable. Denies any pain nor any discomfort.
[2022-07-25 04:55] VITALS: BP 111/49
[2022-07-25] MEDS: PANTOPRAZOLE SODIUM 40 MG TABLET.DR PO SCH (06:03)
[2022-07-25] MEDS: LEVOTHYROXINE SODIUM 25 MCG TABLET PO SCH (06:04)
[2022-07-25] MEDS: LINZESS 290MCG CAPSULE PO SCH (06:30)
[2022-07-25 07:31] VITALS: BP 129/54
[2022-07-25] MEDS: AMIODARONE HCL 200 MG TABLET PO SCH (08:34)
[2022-07-25] MEDS: OXYCODONE HCL 5 MG TABLET PO SCH ×2 (08:34→14:13)
[2022-07-25] MEDS: FUROSEMIDE 20 MG TABLET PO SCH (08:35)
[2022-07-25] MEDS: APIXABAN 2.5 MG TABLET PO SCH ×2 (08:37→17:29)
[2022-07-25] MEDS: DILTIAZEM HCL CD 120 MG CAP.SR.24H PO SCH (08:38)
[2022-07-25] MEDS: METOPROLOL TARTRATE 25 MG TABLET PO SCH ×2 (08:39→20:43)
[2022-07-25] MEDS: CELECOXIB 200 MG CAPSULE PO SCH (08:40)
[2022-07-25] MEDS: FLUTICASONE PROP NASAL SPRAY 16 GM BOTTLE NS SCH ×2 (08:47→17:30)
[2022-07-25] MEDS: ENSURE ENLIVE (VAN) 240 ML LIQUID PO SCH ×3 (08:48→17:29)
[2022-07-25] MEDS: ARGININE/GLUTAMINE/CALCIUM BMB 1 EACH POWD.PACK PO SCH ×2 (08:48→17:30)
[2022-07-25] MEDS: REMEDY ESSENTIAL ZINC PASTE 113 GM TOP SCH ×2 (08:49→20:43)
[2022-07-25] MEDS: CYANOCOBALAMIN 1,000 MCG TABLET PO SCH (14:13)
[2022-07-25] MEDS: ASCORBIC ACID 500 MG TABLET PO SCH (14:13)
[2022-07-25] MEDS: DOCUSATE SODIUM 100 MG CAPSULE PO SCH (14:13)
[2022-07-25] MEDS: CEphaleXIN 500 MG CAPSULE PO SCH ×2 (14:13→21:42)
[2022-07-25 16:00] VITALS: BP 105/46
[2022-07-25 20:00] VITALS: BP 100/48
[2022-07-26 04:00] VITALS: BP 104/52
[2022-07-26] MEDS: PANTOPRAZOLE SODIUM 40 MG TABLET.DR PO SCH (06:20)
[2022-07-26] MEDS: CEphaleXIN 500 MG CAPSULE PO SCH ×3 (06:20→22:05)
[2022-07-26] MEDS: LEVOTHYROXINE SODIUM 25 MCG TABLET PO SCH (06:20)
[2022-07-26 07:36] VITALS: BP 120/57
[2022-07-26] MEDS: LINZESS 290MCG CAPSULE PO SCH (07:38)
[2022-07-26] MEDS: FUROSEMIDE 20 MG TABLET PO SCH (08:32)
[2022-07-26] MEDS: CELECOXIB 200 MG CAPSULE PO SCH (08:36)
[2022-07-26] MEDS: AMIODARONE HCL 200 MG TABLET PO SCH (08:36)
[2022-07-26] MEDS: OXYCODONE HCL 5 MG TABLET PO SCH ×2 (08:37→12:59)
[2022-07-26] MEDS: DILTIAZEM HCL CD 120 MG CAP.SR.24H PO SCH (08:37)
[2022-07-26] MEDS: METOPROLOL TARTRATE 25 MG TABLET PO SCH ×2 (08:37→20:46)
[2022-07-26] MEDS: REMEDY ESSENTIAL ZINC PASTE 113 GM TOP SCH ×2 (08:38→20:47)
[2022-07-26] MEDS: APIXABAN 2.5 MG TABLET PO SCH ×2 (08:41→16:21)
[2022-07-26] MEDS: FLUTICASONE PROP NASAL SPRAY 16 GM BOTTLE NS SCH ×2 (08:42→16:27)
[2022-07-26] MEDS: ENSURE ENLIVE (VAN) 240 ML LIQUID PO SCH ×3 (08:43→16:22)
[2022-07-26] MEDS: ARGININE/GLUTAMINE/CALCIUM BMB 1 EACH POWD.PACK PO SCH ×2 (08:43→16:22)
--- NOTE | 2022-07-26 12:50 | NUR ---
WOUND CARE CONSULT/FOLLOW UP: PT SEEN FOR RE-EVALUATION OF RT HIP INCISION AND LEFT LOWER LEG SKIN TEAR. LOWER LEG SKIN TEAR IS IMPROVING, SMALLER IN SIZE WITH SCANT SEROUS DRAINAGE. RT HIP INCISION WITH DENNIS HAS MINIMAL SEROUS DRAINAGE AND SCANT PINK DRAINAGE, NO ODOR. SURROUNDING AREA HAS SLIGHT DISCOLORATION BUT NO ERYTHEMA. HEALING SKIN TEARS FROM PREVIOUS SURGICAL TAPE ARE RESOLVING. DISCUSSED SKIN PROTECTION AND WOUND CARE RECOMMENDATIONS WITH NURSING STAFF. PT WILL FOLLOW UP WITH HER SURGEON. IN AGREEMENT WITH PLAN OF CARE.
[2022-07-26] MEDS: DOCUSATE SODIUM 100 MG CAPSULE PO SCH (14:17)
[2022-07-26] MEDS: CYANOCOBALAMIN 1,000 MCG TABLET PO SCH (14:17)
[2022-07-26] MEDS: ASCORBIC ACID 500 MG TABLET PO SCH (14:18)
[2022-07-26 16:00] VITALS: BP 100/55
--- NOTE | 2022-07-26 19:33 | NUR ---
RECEIVED REPORT FROM RN NOC SHIFT. PATIENT IS ALERT & ORIENTED X4, AND ABLE TO UNDERSTAND SOME KYRGYZ. PATIENT PARTICIPATES WITH PHYSICAL AND OCCUPATIONAL THERAPY SCHEDULED. VITAL SIGNS STABLE. PATIENT HAD COMPLAINT OF PAIN. RN GAVE PAIN MEDICATIONS ORDERED. PATIENT PAIN SUBSIDES. PATIENT VOIDS ADEQUATELY AND HAD NO BOWEL MOVEMENT. PATIENT TOLERATES PO MEDICATIONS AND DIET WELL. WOUND DRESSING DONE, WOUND CARE NURSE VISITED. SURGEON CAME TO VISIT PATIENT & FAMILY. NO ACUTE DISTRESS NOTED. FALL PRECAUTIONS OBSERVED. ALL NEEDS MET AT THIS TIME. ENDORSED CARE TO RN NOC SHIFT FOR CONTINUATION OF CARE.
[2022-07-26 20:00] VITALS: BP 113/52
[2022-07-26] MEDS: FERROUS SULFATE 325 MG TABEC PO SCH (20:46)
[2022-07-26] MEDS: FLEET ENEMA 133 ML BOTTLE RC PRN (20:55)
[2022-07-27 04:00] VITALS: BP 108/55
[2022-07-27] MEDS: PANTOPRAZOLE SODIUM 40 MG TABLET.DR PO SCH (05:48)
[2022-07-27] MEDS: LEVOTHYROXINE SODIUM 25 MCG TABLET PO SCH (05:48)
[2022-07-27] MEDS: CEphaleXIN 500 MG CAPSULE PO SCH ×2 (05:48→13:17)
[2022-07-27] MEDS: LINZESS 290MCG CAPSULE PO SCH (05:49)
[2022-07-27 07:33] VITALS: BP 111/54
[2022-07-27] MEDS: ENSURE ENLIVE (VAN) 240 ML LIQUID PO SCH ×3 (08:22→17:32)
[2022-07-27] MEDS: FLUTICASONE PROP NASAL SPRAY 16 GM BOTTLE NS SCH ×2 (08:23→17:32)
[2022-07-27] MEDS: ARGININE/GLUTAMINE/CALCIUM BMB 1 EACH POWD.PACK PO SCH ×2 (08:23→17:33)
[2022-07-27] MEDS: CELECOXIB 200 MG CAPSULE PO SCH (08:24)
[2022-07-27] MEDS: FUROSEMIDE 20 MG TABLET PO SCH (08:24)
[2022-07-27] MEDS: APIXABAN 2.5 MG TABLET PO SCH ×2 (08:26→17:31)
[2022-07-27] MEDS: OXYCODONE HCL 5 MG TABLET PO SCH ×2 (08:39→13:24)
[2022-07-27] MEDS: DILTIAZEM HCL CD 120 MG CAP.SR.24H PO SCH (08:40)
[2022-07-27] MEDS: METOPROLOL TARTRATE 25 MG TABLET PO SCH (08:41)
[2022-07-27] MEDS: REMEDY ESSENTIAL ZINC PASTE 113 GM TOP SCH (08:41)
[2022-07-27] MEDS: AMIODARONE HCL 200 MG TABLET PO SCH (08:41)
[2022-07-27] MEDS: ONDANSETRON HCL 4 MG TABLET PO PRN (08:42)
[2022-07-27] MEDS: CYANOCOBALAMIN 1,000 MCG TABLET PO SCH (15:16)
[2022-07-27] MEDS: ASCORBIC ACID 500 MG TABLET PO SCH (15:17)
[2022-07-27] MEDS: DOCUSATE SODIUM 100 MG CAPSULE PO SCH (15:17)
[2022-07-27 15:58] VITALS: BP 121/56
[2022-07-27 20:00] VITALS: BP 107/55
[2022-07-30] MEDS ORDERED: ZINC1CAP3 PO (10:17)
[2022-07-30] MEDS ORDERED: SENN-175 PO (10:17)
== END 2022-07-27 19:20 | disposition short-term general hospital (02) | DRG 559 ==
PROVIDERS: ADMIT Physical Medicine & Rehabilitation Pain Medicine; ATTEND Physical Medicine & Rehabilitation Pain Medicine
DX: M80.051D Age-related osteoporosis with current pathological fracture, right femur, subsequent encounter for fracture with routine healing (principal); E43 Unspecified severe protein-calorie malnutrition; N17.0 Acute kidney failure with tubular necrosis; N39.0 Urinary tract infection, site not specified; L97.319 Non-pressure chronic ulcer of right ankle with unspecified severity; I10 Essential (primary) hypertension; I48.0 Paroxysmal atrial fibrillation; M81.0 Age-related osteoporosis without current pathological fracture; Z85.3 Personal history of malignant neoplasm of breast; Z85.118 Personal history of other malignant neoplasm of bronchus and lung; D64.9 Anemia, unspecified; E03.2 Hypothyroidism due to medicaments and other exogenous substances; E78.5 Hyperlipidemia, unspecified; I13.10 Hypertensive heart and chronic kidney disease without heart failure, with stage 1 through stage 4 chronic kidney disease, or unspecified chronic kidney disease; N18.2 Chronic kidney disease, stage 2 (mild); I25.10 Atherosclerotic heart disease of native coronary artery without angina pectoris; I73.9 Peripheral vascular disease, unspecified; K21.9 Gastro-esophageal reflux disease without esophagitis; K59.00 Constipation, unspecified; K86.89 Other specified diseases of pancreas; M19.90 Unspecified osteoarthritis, unspecified site; R26.9 Unspecified abnormalities of gait and mobility; M89.8X9 Other specified disorders of bone, unspecified site; T46.2X5A Adverse effect of other antidysrhythmic drugs, initial encounter; Z79.01 Long term (current) use of anticoagulants; Z90.12 Acquired absence of left breast and nipple; Z96.641 Presence of right artificial hip joint; Z98.1 Arthrodesis status; Z91.81 History of falling; I49.9 Cardiac arrhythmia, unspecified
CPT/HCPCS: 36415; 73502; 82378; 83735; 84100; 84443; 84550; 85025; 97535-GO-CO; A6209; A6213; J0696; J3535; Q0162

== ENCOUNTER 2022-07-27 19:21 | Inpatient (IN) | payer MEDICARE, OTHER ==
[~2022-07-27] VITALS: Ht 152.4 cm; Wt 72.1 kg
[~2022-07-27 19:21] MED LIST changes: +ASCO500T20 PO; +CYAN-51 PO; -DILT180C66 PO; +DOCU-141 PO; +FERR325T28 PO; +FOLI1TAB94 PO; -ICOS1CAP PO; +LINA290C PO; +METO25TA6 PO; +MONT10TA22 PO; -metoprolol PO
[2022-07-27 20:00] VITALS: BP 107/55
[2022-07-27] MEDS ORDERED: SENNOSIDES 1 TABLET PO PRN (20:15)
[2022-07-27] MEDS ORDERED: ZOLPIDEM 5 MG TABLET PO PRN (20:15)
--- NOTE | 2022-07-27 21:56 | NUR ---
PATIENT GIVEN PAIN MEDICATION NORCO C/O PATIENT REQUEST -PAIN 01/20 TO HER RIGHT HIP .
--- NOTE | 2022-07-27 21:56 | NUR ---
patient seen and evaluated by LEANDRO CASTILLO BUSINESS ANALYTICS SPECIALIST SAW PATIENT .
[2022-07-27] MEDS: DOCUSATE SODIUM 100 MG CAPSULE PO SCH (21:57)
[2022-07-27] MEDS: HYDROCODONE/APAP 5-325MG TABLET PO PRN (21:57)
[2022-07-28 05:34] VITALS: BP 106/48
[2022-07-28 07:30] LABS: HEMATOCRIT 28.6 % (31.2-41.9); MEAN CORPUSCULAR HEMOGLOBIN 31.5 uug (24.7-32.8); MEAN CORPUSCULAR VOLUME 96.8 fL (75.5-95.3); PLATELET COUNT (AUTO) 226 K/uL (179-408)
[2022-07-28] MEDS ORDERED: CEphaleXIN 500 MG CAPSULE PO SCH (08:00)
[2022-07-28] MEDS: DILTIAZEM HCL CD 120 MG CAP.SR.24H PO SCH (09:00)
[2022-07-28] MEDS ORDERED: LINZESS 290MCG CAPSULE PO SCH (09:00)
[2022-07-28] MEDS: LIPASE/PROTEASE/AMYLASE 4200 UNITS CAPSULE.DR PO SCH ×3 (09:43→18:00)
[2022-07-28] MEDS: AMIODARONE HCL 200 MG TABLET PO SCH (09:43)
[2022-07-28] MEDS: CELECOXIB 200 MG CAPSULE PO SCH (09:43)
[2022-07-28] MEDS: APIXABAN 2.5 MG TABLET PO SCH ×2 (09:44→18:12)
[2022-07-28] MEDS: FLUTICASONE PROP NASAL SPRAY 16 GM BOTTLE NS SCH ×2 (09:48→18:12)
[2022-07-28] MEDS: HYDROCODONE/APAP 5-325MG TABLET PO PRN (10:09)
[2022-07-28 11:06] LABS: CHLORIDE 104 mmol/L (98-107); POTASSIUM 3.6 mmol/L (3.5-5.1)
[2022-07-28 11:07] LABS: ALKALINE PHOSPHATASE 131 U/L (50-136); BILIRUBIN,TOTAL 0.7 mg/dL (0.2-1.0); CARBON DIOXIDE 31 mmol/L (21-32); CREATININE 1.3 mg/dL (0.6-1.3); GLUCOSE 69 mg/dL (74-106); PHOSPHOROUS 4.1 mg/dL (2.5-4.9); UREA NITROGEN, BLOOD 40 mg/dL (7-18)
[2022-07-28 11:08] LABS: ALANINE AMINOTRANSFERASE 24 U/L (14-59); ASPARTATE AMINOTRANSFERASE 31 U/L (15-37); MAGNESIUM 1.9 mg/dL (1.8-2.4); TOTAL PROTEIN, SERUM 5.7 g/dL (6.4-8.2)
[2022-07-28 11:28] VITALS: BP 123/58
--- NOTE | 2022-07-28 12:21 | NUR ---
bladder scan doned. 460 cc urine retention noted. will do straight cath per md order. Addendum: 07/28/22 at 1250 by MINERVA MÉNDEZ RN straight cath done. 375 urine output.
[2022-07-28 12:39] LABS: *BILIRUBIN,URIN NEGATIVE (NEGATIVE); *BLOOD, URINE NEGATIVE (NEGATIVE); *CLARITY,URINE CLEAR (CLEAR); *COLOR,URINE YELLOW (YELLOW); *KETONES,URINE NEGATIVE (NEGATIVE); *UROBILINOGEN,URINE 0.2 E.U./dl (NORMAL); LEUKOCYTE ESTERASE ,URINE 1+ (NEGATIVE); NITRITE, URINE NEGATIVE (NEGATIVE); PH,URINE 5.5 (5.0-8.0); UGLUCOSE NEGATIVE (NEGATIVE)
[2022-07-28] MEDS: DOXYCYCLINE HYCLATE 100 MG TABLET PO SCH ×2 (13:02→20:46)
[2022-07-28] MEDS: IV NS 1000 ML 1,000 ML IV PRN (13:15)
[2022-07-28] MEDS: CEFTRIAXONE 1 G in IV DEXTROSE 5% 50 ML IV SCH (13:50)
[2022-07-28] MEDS ORDERED: PIPERACILLIN SODIUM/TAZOBACTAM 3.375 G in IV DEXTROSE 5% 50 ML IV SCH (14:00)
--- NOTE | 2022-07-28 15:10 | NUR ---
pt is medically clear for discharge. pt is aware. ambulance filler picker @1600 per CM Addendum: 07/28/22 at 1511 by MINERVA MÉNDEZ RN wrong patient
[2022-07-28 15:47] VITALS: BP 106/52
[2022-07-28] MEDS: ASCORBIC ACID 500 MG TABLET PO SCH (16:03)
[2022-07-28] MEDS: FOLIC ACID 1 MG TABLET PO SCH (16:03)
[2022-07-28] MEDS: CYANOCOBALAMIN 1,000 MCG TABLET PO SCH (16:03)
[2022-07-28 17:35] LABS: BACTERIA,URINE FEW /HPF (NONE SEEN); YEAST,URINE FEW /HPF (NONE SEEN)
[2022-07-28] MEDS: MONTELUKAST SODIUM 10 MG TABLET PO SCH (18:11)
--- NOTE | 2022-07-28 19:05 | NUR ---
right buttocks wound noted. cleanse with NS applied zguard cover with mepilex. wound care consult was ordered. Addendum: 07/29/22 at 1311 by MINERVA MÉNDEZ RN bilateral heel discoloration is also noted. Brian(Ashok) is aware. applied optiform for protection and heel float.
--- NOTE | 2022-07-28 19:30 | NUR ---
shift note. pt aox4. no acute distress noted. pt doesn't have good appetite but drinks ensure regularly, son is aware. urine analysis done. notified of result. new order carried out. pt tolerated pt well. no complain of pain. right buttocks wound and bilateral heel discoloration noted, wound consult ordered. reposition pt q2hr, heel float. call light with in reach. bed locked. will endorsed to [facility] shift. Addendum: 07/29/22 at 1324 by MINERVA MÉNDEZ RN shift note. pt aox4. no acute distress noted. pt doesn't have good appetite but drinks ensure regularly, son is aware. urine analysis done. notified of result. new order carried out. pt tolerated pt well. no complain of pain. surgery wound and left fried skin tear wound tx done. right buttocks wound and bilateral heel discoloration noted, son at bedside and aware. wound consult ordered. reposition pt q2hr, heel float. call light with in reach. bed locked. will endorsed to [facility] shift.
[2022-07-28 20:00] VITALS: BP 113/46
[2022-07-28] MEDS ORDERED: FLUCONAZOLE 100 MG TABLET PO ONE (20:00)
[2022-07-28] MEDS: DOCUSATE SODIUM 100 MG CAPSULE PO SCH (20:46)
--- NOTE | 2022-07-28 21:00 | NUR ---
PATIENT AWAKE IN BED. BLADDER SCANNED ORDERED AND RECEIVED RETENTION OF 164cc. PATIENT DENIES ANY PAIN OR DISCOMFORT. OFFERED PURE-WICK, BUT PATIENT REFUSED AND WANTS TO CONTINUE TO USE DIAPER.
[2022-07-29] MEDS: IV NS 1000 ML 1,000 ML IV PRN (03:00)
[2022-07-29 03:58] VITALS: BP 103/54
--- NOTE | 2022-07-29 05:05 | NUR ---
PATIENT AWAKE IN BED. VOIDED LARGE AMOUNT OF URINE IN DIAPER AND BM NOTED. PATIENT REFUSED BLADDER SCAN AT THIS TIME. ALL NEEDS ATTENDED. WILL CONTINUE TO MONITOR.
[2022-07-29] MEDS: LINZESS 290MCG CAPSULE PO SCH ×2 (07:00→07:45)
[2022-07-29 07:22] LABS: HEMATOCRIT 28.7 % (31.2-41.9); MEAN CORPUSCULAR HEMOGLOBIN 31.6 uug (24.7-32.8); MEAN CORPUSCULAR VOLUME 96.1 fL (75.5-95.3); PLATELET COUNT (AUTO) 229 K/uL (179-408)
[2022-07-29 07:55] LABS: CARBON DIOXIDE 30 mmol/L (21-32); CHLORIDE 105 mmol/L (98-107); GLUCOSE 85 mg/dL (74-106); MAGNESIUM 1.7 mg/dL (1.8-2.4); PHOSPHOROUS 3.2 mg/dL (2.5-4.9); POTASSIUM 3.7 mmol/L (3.5-5.1); UREA NITROGEN, BLOOD 32 mg/dL (7-18)
[2022-07-29] MEDS: DILTIAZEM HCL CD 120 MG CAP.SR.24H PO SCH (09:00)
[2022-07-29] MEDS: CELECOXIB 200 MG CAPSULE PO SCH (09:58)
[2022-07-29] MEDS: DOXYCYCLINE HYCLATE 100 MG TABLET PO SCH ×2 (09:58→22:33)
[2022-07-29] MEDS: FLUTICASONE PROP NASAL SPRAY 16 GM BOTTLE NS SCH ×2 (09:59→17:40)
[2022-07-29] MEDS ORDERED: POTASSIUM CHLORIDE 20 MEQ TAB.PRT.SR PO ONE (10:00)
[2022-07-29] MEDS: AMIODARONE HCL 200 MG TABLET PO SCH (10:00)
[2022-07-29] MEDS ORDERED: MAGNESIUM OXIDE 400 MG TABLET PO ONE (10:00)
[2022-07-29] MEDS: ZINC SULFATE 220 MG CAPSULE PO SCH (10:01)
[2022-07-29] MEDS: APIXABAN 2.5 MG TABLET PO SCH ×2 (10:03→17:39)
[2022-07-29] MEDS: LIPASE/PROTEASE/AMYLASE 4200 UNITS CAPSULE.DR PO SCH ×3 (10:03→17:42)
[2022-07-29 11:26] VITALS: BP 104/59
[2022-07-29] MEDS ORDERED: REMEDY ESSENTIAL ZINC PASTE 113 GM TOP PRN (13:00)
--- NOTE | 2022-07-29 13:00 | NUR ---
bladder scan 160 urine retention. pt urinate in commode and diaper.
--- NOTE | 2022-07-29 13:04 | NUR ---
WOUND CARE CONSULT: PT PRESENTS WITH RT BUTTOCK AREA OF EXCORIATION. PT IS INCONTINENT OF STOOL AT TIMES. PT ALSO NOTED TO HAVE HEALING SKIN TEAR TO LEFT LOWER LEG AND HEALING SKIN TEARS (FROM PREVIOUS SURGICAL TAPE) TO RT HIP AREA WITH CLOSED SURGICAL INCISION, PRESENT ON ADMISSION. DISCOLORATIONS NOTED TO BILATERAL HEELS WITHOUT TENDERNESS, ERYTHEMA, DRAINAGE OR FLUCTUANCE. DISCUSSED SKIN PROTECTION AND WOUND CARE RECOMMENDATIONS WITH NURSING STAFF. IN AGREEMENT WITH PLAN OF CARE. Addendum: 07/29/22 at 1306 by MIAH GOMEZ RN Amended: Links added.
[2022-07-29] MEDS: CEFTRIAXONE 1 G in IV DEXTROSE 5% 50 ML IV SCH (13:53)
[2022-07-29] MEDS: ONDANSETRON 4 MG/2 ML VIAL IV PRN (13:57)
[2022-07-29 15:11] VITALS: BP 123/84
[2022-07-29] MEDS: ASCORBIC ACID 500 MG TABLET PO SCH (17:38)
[2022-07-29] MEDS: CYANOCOBALAMIN 1,000 MCG TABLET PO SCH (17:38)
[2022-07-29] MEDS: MONTELUKAST SODIUM 10 MG TABLET PO SCH (17:38)
[2022-07-29] MEDS: FOLIC ACID 1 MG TABLET PO SCH (17:38)
--- NOTE | 2022-07-29 18:29 | NUR ---
surgical wound dhiraj removed per md order. no bleeding noted. surgical wound closed and intact.
--- NOTE | 2022-07-29 19:15 | NUR ---
shift note. pt aox4. in no acute distress. denies pain of sob. tolerated pt well. pt have no appetite to eat. pt only want to drink ensure. Brian(son) at bedside and aware. tolerated PT well. wound tx done. q2hr reposition, heel floating. on abx tx for UTI. possible discharge for torrie. f/u with CM. all need met. call light with in [facility]. bedlocked. will endorsed to noc shift
[2022-07-29 20:00] VITALS: BP 112/53
[2022-07-29] MEDS: REMEDY ESSENTIAL ZINC PASTE 113 GM TOP SCH (21:00)
[2022-07-29] MEDS: DOCUSATE SODIUM 100 MG CAPSULE PO SCH (22:33)
[2022-07-30 04:00] VITALS: BP 112/52
--- NOTE | 2022-07-30 07:36 | NUR ---
Patient is AAOX4 Peruvian speaker. She denies and refused pain medications. No sign of respiratory distress observed. She is very respectful and appropriate with staff. She tolerated well her meds. Will continue to monitor patient for safety.
[2022-07-30] MEDS: LINZESS 290MCG CAPSULE PO SCH (07:53)
[2022-07-30 08:44] VITALS: BP 112/52
[2022-07-30] MEDS: CELECOXIB 200 MG CAPSULE PO SCH (08:44)
[2022-07-30] MEDS: DILTIAZEM HCL CD 120 MG CAP.SR.24H PO SCH (08:44)
[2022-07-30] MEDS: ZINC SULFATE 220 MG CAPSULE PO SCH (08:44)
[2022-07-30] MEDS: DOXYCYCLINE HYCLATE 100 MG TABLET PO SCH (08:45)
[2022-07-30] MEDS: AMIODARONE HCL 200 MG TABLET PO SCH (08:45)
[2022-07-30] MEDS: APIXABAN 2.5 MG TABLET PO SCH ×2 (08:46→08:52)
[2022-07-30] MEDS: FLUTICASONE PROP NASAL SPRAY 16 GM BOTTLE NS SCH (08:46)
[2022-07-30] MEDS: LIPASE/PROTEASE/AMYLASE 4200 UNITS CAPSULE.DR PO SCH ×2 (08:47→08:51)
[2022-07-30] MEDS: REMEDY ESSENTIAL ZINC PASTE 113 GM TOP SCH (08:47)
[2022-07-30] MEDS: FOLIC ACID 1 MG TABLET PO SCH (08:51)
[2022-07-30] MEDS: ASCORBIC ACID 500 MG TABLET PO SCH (08:52)
[2022-07-30] MEDS: CYANOCOBALAMIN 1,000 MCG TABLET PO SCH (08:52)
[2022-07-30] MEDS: ONDANSETRON 4 MG/2 ML VIAL IV PRN (09:32)
--- NOTE | 2022-07-30 09:54 | NUR ---
0730-Rec'd patient in bed, awake, alert and oriented. Patient denies any pain, discomfort at this time. Oral fluids offered and taken well. Safety measures in place and call light at reach. 0830-science specialist here making routine wound rounds. science specialist (nurse) evaluated patient's RT hip surgical incision site. Patient's son (MR LARA) at bedside during RT surgical wound assessment. 0845-Scheduled medication offered as ordered, risks vs benefits explained. Son (MR LARA) at bed side, son responded for patient, stating, "no she is not going to take any medications". Informed patient's son, the treatment is for his mother, to allow me to ask and offered Julius Leblanc. her medication. Per son, (MR LARA) "go ahead, I know she is not going to take anything". Mrs GriffinJulius. able to take her flonase nasal spray, but declined all other oral medication. Risks vs benefits explained patient still refused. Wishes and choices respected. 0932-Zofran IV administered as ordered for C/O GI discomfort nausea.
[2022-07-30] MEDS ORDERED: SENN-175 PO (10:17)
[2022-07-30] MEDS ORDERED: ZINC1CAP3 PO (10:17)
--- NOTE | 2022-07-30 11:29 | NUR ---
1000-Patient was seen by Dr. Stephens with orders to DC as of today. Medication recon. finalized by MD. Discharged paper work, completed and provided to patient. All belongings taken. Medication brought from home returned. Education on exit care provided to the son/MR LARA, Patient in good stable conditions, VSS, no c/o pain or discomfort on exiting. No physical or respiratory distress noted. Accompanied patient to the emergency exit safely.
--- NOTE | 2022-07-30 11:41 | NUR ---
Addendum: 1141-Patient left the facility at this time.
== END 2022-07-30 11:45 | disposition home health service (06) | DRG 862 ==
LOC: MEDSURG3 19:21
PROVIDERS: ADMIT Internal Medicine; ATTEND Internal Medicine
DX: T81.49XA Infection following a procedure, other surgical site, initial encounter (principal); E43 Unspecified severe protein-calorie malnutrition; N17.0 Acute kidney failure with tubular necrosis; N39.0 Urinary tract infection, site not specified; L03.116 Cellulitis of left lower limb; I48.0 Paroxysmal atrial fibrillation; D64.9 Anemia, unspecified; E03.9 Hypothyroidism, unspecified; E66.9 Obesity, unspecified; E78.5 Hyperlipidemia, unspecified; E87.6 Hypokalemia; K21.9 Gastro-esophageal reflux disease without esophagitis; K59.00 Constipation, unspecified; Z79.01 Long term (current) use of anticoagulants; Z85.3 Personal history of malignant neoplasm of breast; Z90.12 Acquired absence of left breast and nipple; Z85.118 Personal history of other malignant neoplasm of bronchus and lung; M81.0 Age-related osteoporosis without current pathological fracture; N18.9 Chronic kidney disease, unspecified; R33.9 Retention of urine, unspecified; F41.9 Anxiety disorder, unspecified; F32.A Depression, unspecified; G47.00 Insomnia, unspecified; M19.90 Unspecified osteoarthritis, unspecified site; Z74.09 Other reduced mobility; E86.0 Dehydration; E83.89 Other disorders of mineral metabolism; D72.828 Other elevated white blood cell count; K86.89 Other specified diseases of pancreas; I12.9 Hypertensive chronic kidney disease with stage 1 through stage 4 chronic kidney disease, or unspecified chronic kidney disease; Z96.641 Presence of right artificial hip joint; M89.8X9 Other specified disorders of bone, unspecified site; Z68.31 Body mass index [BMI] 31.0-31.9, adult
CPT/HCPCS: 36415; 82378; 83735; 84100; 85025; A4663; A6209; A6213; C1758; G0378; J0696; J2405; J3535; J7040